=== PATIENT | female | born 1975 | race Caucasian/White ===

== ENCOUNTER 2024-04-14 00:13 | Emergency (ER) | payer OTHER, SELFPAY ==
[2024-04-14 00:38] VITALS: BP 131/99
[2024-04-14 00:39] VITALS: BP 131/99
[2024-04-14 00:41] VITALS: BMI 23.2
--- NOTE | 2024-04-14 00:45 | ED.GENMED ---
History of Present Illness
General
Chief Complaint: Abdominal Pain
Source: patient
Exam Limitations: none
Time Seen by Provider: 04/14/24 00:34
Nursing documentation reviewed up to this point in time: agreed with
History of Present Illness
History of Present Illness:
Pleasant 49-year-old female presents to the emergency department with a 'bump' in her upper abdomen since Sunday. She states that she has had mild diffuse abdominal pain. Tonight she states that she had some purulent discharge coming from her
umbilicus. She came into the emergency department for evaluation. Denies fever, chills, nausea or vomiting. Denies previous abdominal surgeries.
Past History
Past History
ED Past Medical History: Psychiatric (PTSD) and Other (Psychogenic polydipsia with hyponatremia)
ED Past Surgical History: Other (Rhinoplasty)
Social History
Tobacco: Smoker
Alcohol: None
Living: with family
Family History
Family History: Other (Breast cancer and colon cancer)
Review of Systems
Review of Systems
Allergies reviewed?: Yes
All Other Systems: ROS reviewed and negative except as documented in HPI and ROS
Constitutional: Reports no symptoms
EENT: Reports no symptoms
Respiratory: Reports no symptoms
Cardiac: Reports no symptoms
ABD/GI: Reports abdominal pain
: Reports no symptoms
Musculoskeletal: Reports no symptoms
Skin: Reports no symptoms
Neurological: Reports no symptoms
Endocrine: Reports no symptoms
Hematologic/Lymphatic: Reports no symptoms
Psychiatric: Reports no symptoms
Phy Exam
General Physical Exam
General Presentation: well appearing and no apparent distress
General Skin: warm and dry
General Habitus: normal
General Mental: alert
General Hydration: appears well hydrated
ENT Exam
ENT Exam: EOMI, pharynx normal, neck supple and normocephalic
Eye Exam
Eye Exam: PERRL, cornea clear and conjunctiva normal
Cardiovascular Exam
Cardiovascular Exam: regular rate/rhythm, no edema, no murmur and normal peripheral pulses
Pulmonary Exam
Pulmonary Exam: lungs clear, no respiratory distress, no rales, no crackles, no rhonchi, no stridor, no wheezing and no cough
Gastrointestinal Exam
Gastrointestinal Exam: normal bowel sounds, non tender, soft, no organomegaly, no pulsatile mass, non distended and other (Small protuberance above the abdomen. There is purulent discharge coming from the umbilical cavity. This was cultured.)
Abdominal Scars: other (This)
Auscultation of Abdomen: normal
Neurological Exam
Neurological Exam: alert, oriented x3, no motor deficits and speech normal
Musculoskeletal Exam
Musculoskeletal Exam: full ROM and no edema
Skin Exam
Skin Exam: normal color, warm/dry, no rash and no petechia
Psychiatric Exam
Psychiatric Exam: normal mood/affect
Course
Orders/Labs/Results
Orders:
Orders
04/14/24 00:41
CT Abd/pelvis W Iv Cont Urgent
Comment:
Reason For Exam: supra umbilcal lump with discharge
CR Chest - 2 Views Urgent
Comment:
Reason For Exam: right chest wall pain
04/14/24 00:45
Electrocardiogram (*1) Urgent
Reason for Study: Abdominal Pain
EKG- Treatment ONCE
04/14/24 00:50
Complete Blood Count/With Diff Urgent
Comprehensive Metabolic Panel Urgent
HCG, Serum Qualitative Screen Urgent
Lactic Acid Q4H
Comment: CANCEL 2nd LACTIC ACID IF 1st LACTIC ACID IS LESS THAN 2
Wound Culture [Wound/Abscess/Other Culture] Urgent
BRIGIDA Source: Abdomen
Specimen Description:
Date Specimen was Collected: 04/14/24
Time Specimen was Collected: 00:43
04/14/24 01:01
Add On- LAB Urgent
Tests Added?: hcg qual
Abnormal Lab Results
04/14/24
00:50
RBC 4.02 L 10^6/uL
(4.20-5.40)
MCH 32.6 H pg
(27.0-31.0)
04/14/24 00:50
04/14/24 00:50
Vital Signs
Initial and Last Documented VS:
Initial Vital Signs
Temp Pulse Resp BP Pulse Ox
97.9 F 67 20 131/99 99
04/14/24 00:38 04/14/24 00:38 04/14/24 00:38 04/14/24 00:38 04/14/24 00:38
Last Documented Vital Signs
Temp Pulse Resp BP Pulse Ox
97.9 F 72 14 120/74 99
04/14/24 00:38 04/14/24 03:23 04/14/24 03:23 04/14/24 01:00 04/14/24 03:23
*Critical Care Note
Total Time (30-74mins, 75-104mins- exclusive of procedures): Not Applicable
Update Note
Update Note:
CT ABDOMEN PELVIS WITH CONTRAST
COMPARISON: 04/25/2017
IMPRESSION:
Increased skin thickening at the umbilicus that may indicate cellulitis. No drainable fluid collection.
Distended urinary bladder. Prominence of the bilateral ureters likely due to vesicoureteral reflux.
Contracted gallbladder. No CT signs of pancreatitis.
No evidence of diverticulitis or colitis. Moderate stool in the colon. Appendix not visualized. No bowel obstruction. No free air.
No concerning bone finding.
Case results were faxed/electronically transmitted at 2860 EST. If there are any questions please feel free to contact me directly at [phone], ext [phone]. If you cannot reach me at this number, do not leave a voicemail. Please call [phone]
ext [phone] and ask for the next available radiologist.
ED Attending Note
-
Portions of this chart may have been created with voice recognition software.� Occasional wrong word or��sound alike� substitutions may have occurred due to the inherent limitations of voice recognition software.
Discharge Plan
Departure
Patient Disposition: Home (Routine Discharge)
Date of Disposition: 04/14/24
Time of Disposition: 03:18
Patient with high blood pressure during this ER visit?: Yes
Discharge Problem:
Cellulitis
Instructions: Cellulitis (skin infection) in adults - Discharge instructions, BLOOD PRESSURE
Prescriptions:
New
cephalexin 500 mg capsule
500 mg PO BID 10 Days Qty: 20 0RF
No Action
lorazepam 1 MG tablet
1 mg PO Q8HPRN PRN (Reason: anxiety) Qty: 15 0RF
Referrals:
Josef Marcelo, [Family Provider] -
Activity Restrictions/Additional Instructions:
It was a pleasure meeting you and taking part in your care. We hope for your continued healing and wellness.
Please read discharge instructions in their entirety. However, they are for general education and may not describe your exact diagnosis at discharge. Information on your ER visit and medical conditions were discussed with you along with appropriate
follow up information...
If indicated, please take your medications as instructed and indicated on discharge paperwork.
Please schedule a follow up appointment as directed. Call to schedule an appointment
Please return to the emergency department with ANY change in, persisting, or worsening of symptoms. If any of your symptoms do not improve, or persist, or become more severe within 6-12 hours, please return to the emergency department for further
care.
Please return to the emergency department if you develop a headache, neck pain/stiffness, fever greater than 100.4F, chest pain, shortness of breath, persistent nausea, vomiting, slurred speech, difficulty walking, numbness/tingling, weakness, signs
of infection or any other symptoms that are worrisome to you.
If you have any questions or concerns please do not hesitate to call the Hospital at or E-mail me directly at [email or web address]
Interventions
Interventions:
*Risk Screen - Suicide Last Done: 04/14/24 00:42
*General Assessment Last Done: 04/14/24 00:42
*Neglect/Abuse Screening Last Done: 04/14/24 00:42
ED- Fall Risk Assessment Last Done: 04/14/24 01:57
*ED COVID-19 Vaccine History Last Done: 04/14/24 00:42
*Nursing Disposition Last Done: 04/14/24 03:23
TN-Xcskva-Ucckgptgha Assessment Last Done: 04/14/24 01:57
Discharge Date and Time
Discharge Date/Time: 04/14/24 03:24
Print Language: URDU
[2024-04-14 01:00] VITALS: BP 120/74
[2024-04-14 01:04] LABS: % Basophils 0.6 % (0-2); % Eosinophils 2.1 % (0-6); % Immature Granulocytes 0.1 % (0-0.5); % Lymphocytes 35.8 % (20.5-51.1); % Monocytes 7.8 % (1.7-9.3); % Neutrophils 53.6 % (42.2-75.2); Absolute Eosinophils 0.2 10^3/uL (0-0.7); Absolute Lymphocytes 2.6 10^3/uL (1.2-3.4); Absolute Monocytes 0.6 10^3/uL (0.1-0.6); Absolute Neutrophils 3.8 10^3/uL (1.4-6.5); Hemoglobin 13.1 g/dL (12.0-16.0); Mean Corp Hgb Conc. 34.5 g/dL (33.0-37.0); Mean Corpuscular Hgb 32.6 pg (27.0-31.0); Mean Corpuscular Volume 94.5 fL (81.0-99.0); Mean Platelet Volume 9.5 fL (7.4-10.4); Nucleated Red Blood Cells % 0 %; Platelet Count 241 10^3/uL (130-400); Red Blood Cell Count 4.02 10^6/uL (4.20-5.40); White Blood Cell Count 7.2 10^3/uL (4.8-10.8)
[2024-04-14 01:11] LABS: ALT (SGPT) 14 U/L (0-35); AST (SGOT) 20 U/L (14-36); Albumin 4.7 g/dl (3.5-5.0); Alkaline Phosphatase 77 U/L (38-126); Blood Urea Nitrogen 13 mg/dl (7-17); Calcium 10.1 mg/dl (8.4-10.2); Carbon Dioxide 25 mmol/L (22-30); Chloride 101 mmol/L (98-107); Estimated Creatinine Clearance 91 ml/min; Glucose 94 mg/dl (70-99); Potassium 3.6 mmol/L (3.5-5.1); Sodium 137 mmol/L (135-145); Total Bilirubin 0.5 mg/dl (0.2-1.3); Total Protein 7.1 g/dl (6.3-8.2); eGFR > 60.00
[2024-04-14 02:11] LABS: HCG, Serum Qualitative Screen Negative
== END 2024-04-14 03:24 | disposition home or self-care (01) ==
LOC: EMR 00:13
PROVIDERS: EMERGENCY PHYSICIAN Student in an Organized Health Care Education/Training Program; FAMILY PHYSICIAN Family Medicine
DX: L03.311 Cellulitis of abdominal wall (principal); F17.200 Nicotine dependence, unspecified, uncomplicated
CPT/HCPCS: 99285; 71046; 74177; 80053; 83605; 84703; 85025; 87070; 87077; 87147; 87186; 87205; 93005; Q9967

== ENCOUNTER 2024-09-30 06:39 | Emergency (ER) | payer OTHER, SELFPAY ==
[2024-09-30 06:49] VITALS: BP 133/85
--- NOTE | 2024-09-30 08:30 | ED.GENMED ---
History of Present Illness
General
Chief Complaint: Skin Problem
Source: patient
Exam Limitations: none
Time Seen by Provider: 09/30/24 07:28
Nursing documentation reviewed up to this point in time: agreed with
History of Present Illness
History of Present Illness:
Patient is a 49-year-old female who presents to the ER complaining of redness and pain to right buttocks. She reports she has had a small area to the buttocks for about a year and thought it may have been a cyst. She has never had it examined
however over the past several days patient reports it has become increasingly painful and enlarged. He has discomfort when she sits on the area. She denies any fever or chills. She did feel little nauseous from it.
Past History
Past History
ED Past Medical History: Psychiatric (PTSD) and Other (Psychogenic polydipsia with hyponatremia)
ED Past Surgical History: Other (Rhinoplasty)
Social History
Tobacco: Smoker
Alcohol: None
Living: with family
Family History
Family History: Other (Breast cancer and colon cancer)
Phy Exam
General Physical Exam
General Presentation: no apparent distress
General age: appears stated age
General Skin: warm and dry
General Habitus: normal
General Mental: alert
General Hydration: appears well hydrated
Neurological Exam
Neurological Exam: alert and oriented x3
Musculoskeletal Exam
Musculoskeletal Exam: full ROM
Skin Exam
Skin Exam: normal color, warm/dry and other (+ area of erythema/induration to right mid buttocks approx 5x5 cm no fluctuance not near analia rectal region )
Psychiatric Exam
Psychiatric Exam: normal mood/affect
Course
Orders/Labs/Results
Orders:
Orders
09/30/24 08:29
Doxycycline [Vibramycin] 100 mg PO NOW STA
Ibuprofen [Motrin] 600 mg PO NOW STA
Vital Signs
Initial and Last Documented VS:
Initial Vital Signs
Temp Pulse Resp BP Pulse Ox
97.4 F 72 14 133/85 100
09/30/24 06:49 09/30/24 06:49 09/30/24 06:49 09/30/24 06:49 09/30/24 06:49
Last Documented Vital Signs
Temp Pulse Resp BP Pulse Ox
97.4 F 72 14 133/85 100
09/30/24 06:49 09/30/24 06:49 09/30/24 06:49 09/30/24 06:49 09/30/24 08:33
Procedures
Incision/Drainage/Joint Aspiration
Right Buttock:
Anethesia: 1% Lidocaine with Epi and other (After injection of lidocaine patient felt that she could not tolerate the procedure and no further intervention was done)
MDM/Problems Addressed
Differential Diagnosis Includes:
Not limited to abscess, cellulitis
MDM/Problems Addressed:
Patient is a 49-year female with an abscess to her right buttocks. Area is very firm no fluctuance. After joint decision-making patient wanted to try to attempt to drain however after injection of lidocaine patient felt that she could not continue
and would like to hold off. This is reasonable as this area is very indurated. Discussed warm compresses to the area multiple times a day hot soaks and antibiotics to close outpatient follow-up with family doctor. I did reviewed with patient that
this may either resolve on its own with warm compresses antibiotics will need to be drained she is aware of this. She was given strict return precautions
*Pulse Oximetry
SaO2: 100
Oxygen Mode of Delivery: Room air
Patient hypoxic: no
*Critical Care Note
Total Time (30-74mins, 75-104mins- exclusive of procedures): Not Applicable
ED Attending Note
-
Portions of this chart may have been created with voice recognition software.� Occasional wrong word or��sound alike� substitutions may have occurred due to the inherent limitations of voice recognition software.
Discharge Plan
Departure
Patient Disposition: Home (Routine Discharge)
Date of Disposition: 09/30/24
Time of Disposition: 08:32
Patient with high blood pressure during this ER visit?: Yes
Condition: Fair
Covid-19: Not Applicable
Discharge Problem:
Abscess of skin
Instructions: BLOOD PRESSURE, Skin Abscess
Prescriptions:
New
doxycycline hyclate 100 mg capsule
100 mg PO BID Qty: 20 0RF
No Action
lorazepam 1 MG tablet
1 mg PO Q8HPRN PRN (Reason: anxiety) Qty: 15 0RF
cephalexin 500 mg capsule
500 mg PO BID 10 Days Qty: 20 0RF
sulfamethoxazole-trimethoprim [Bactrim DS] 800-160 mg tablet
1 tab PO Q12H Qty: 14 0RF
Referrals:
Josef Marcelo, [Family Provider, Family Practice]
Stand Alone Forms: Return to Work
Activity Restrictions/Additional Instructions:
As discussed warm compresses to buttocks several times a day. Antibiotic as directed twice daily for the next 10 days. You were given the first dose here in the ER and antibiotic was sent to your prescription. Follow-up with your family doctor in
the next 2 days for reevaluation of symptoms. It is possible that this may need to be drained. Return however if any worsening of symptoms of increased pain redness fever chills or any further concerns.
Interventions
Interventions:
*Risk Screen - Suicide Last Done: 09/30/24 06:49
Discharge Date and Time
Print Language: PALAUAN
[2024-09-30] MEDS: MOTRIN 600 MG PO (08:41)
[2024-09-30] MEDS: VIBRAMYCIN 100 MG PO (08:41)
[2024-09-30 08:53] VITALS: BP 143/79
== END 2024-09-30 08:53 | disposition home or self-care (01) ==
LOC: EMR 06:39
PROVIDERS: EMERGENCY PHYSICIAN Emergency Medicine; FAMILY PHYSICIAN Family Medicine
DX: L02.31 Cutaneous abscess of buttock (principal); F17.200 Nicotine dependence, unspecified, uncomplicated
CPT/HCPCS: 10060; 99283

== ENCOUNTER 2024-10-04 12:39 | Emergency (ER) | payer OTHER, SELFPAY ==
[2024-10-04 12:40] VITALS: BP 134/97
--- NOTE | 2024-10-04 14:30 | ED.GENMED ---
History of Present Illness
General
Chief Complaint: Skin Problem
Source: patient
Exam Limitations: none
Time Seen by Provider: 10/04/24 13:08
Nursing documentation reviewed up to this point in time: agreed with
History of Present Illness
History of Present Illness:
Patient is a 49-year-old female presents to the ER for evaluation. Patient was seen in the ER 4 days ago for abscess at that time drainage was attempted however no pus and return. Patient has been on antibiotics however complains of increasing
swelling. She was seen by her family doctor in addition to the doxycycline prescribed here in the ER she started on Keflex by her family doctor and given a shot of Rocephin as well. She denies any fevers but does complain increasing redness and
pain and swelling to the area.
Past History
Past History
ED Past Medical History: Psychiatric (PTSD) and Other (Psychogenic polydipsia with hyponatremia)
ED Past Surgical History: Other (Rhinoplasty)
Social History
Tobacco: Smoker
Alcohol: None
Living: with family
Family History
Family History: Other (Breast cancer and colon cancer)
Phy Exam
General Physical Exam
General Presentation: no apparent distress
General age: appears stated age
General Skin: warm and dry
General Habitus: normal
General Mental: alert
General Hydration: appears well hydrated
Neurological Exam
Neurological Exam: alert and oriented x3
Musculoskeletal Exam
Musculoskeletal Exam: full ROM
Skin Exam
Skin Exam: normal color, warm/dry and other (right buttocks with obvious abscess with center fluctuance )
Psychiatric Exam
Psychiatric Exam: normal mood/affect
Course
Orders/Labs/Results
Orders:
Orders
10/04/24 14:30
Wound Culture [Wound/Abscess/Other Culture] Urgent
BRIGIDA Source: Abscess
Specimen Description:
Date Specimen was Collected: 10/04/24
Time Specimen was Collected: 14:32
Comment: right buttocks
10/04/24 14:32
Vital Signs- Treatment ONCE
Frequency: Once
Vital Signs
Initial and Last Documented VS:
Initial Vital Signs
Temp Pulse Resp BP Pulse Ox
99.5 F 127 18 134/97 99
10/04/24 12:40 10/04/24 12:40 10/04/24 12:40 10/04/24 12:40 10/04/24 12:40
Last Documented Vital Signs
Temp Pulse Resp BP Pulse Ox
99.5 F 127 18 134/97 99
10/04/24 12:40 10/04/24 12:40 10/04/24 12:40 10/04/24 12:40 10/04/24 14:30
Procedures
Incision/Drainage/Joint Aspiration
Right Buttock:
Anethesia: 1% Lidocaine with Epi
Preparation: cleaned with Betadine
Type of procedure: incise and drain
Nature of site: abscess
Description of abscess: greater than 3cm
Loculations broken up: Yes
How much fluid was obtained?: large amount
Fluid description: purulent
Treatment: packed with gauze
MDM/Problems Addressed
Differential Diagnosis Includes:
Not limited to abscess cellulitis
MDM/Problems Addressed:
Patient was seen here several days ago for early abscess which was very indurated started on antibiotics however abscess has increased with redness and now fluctuant. Patient was previously discharged on doxycycline from the ER added Keflex by
family doctor given shot of Rocephin. No fever or chills. She presents awake alert she is stable appearing but anxious over the incision and drainage procedure.
Right buttocks abscess was incised and drained with significant mount of purulent drainage and return. She tolerated the procedure very well with mom at bedside.
She is to continue on antibiotics and see her family doctor Sunday for packing removal and recheck. she is to return if worsening of symptoms
*Pulse Oximetry
SaO2: 99
Oxygen Mode of Delivery: Room air
Patient hypoxic: no
*Critical Care Note
Total Time (30-74mins, 75-104mins- exclusive of procedures): Not Applicable
ED Attending Note
-
Portions of this chart may have been created with voice recognition software.� Occasional wrong word or��sound alike� substitutions may have occurred due to the inherent limitations of voice recognition software.
Discharge Plan
Departure
Patient Disposition: Home (Routine Discharge)
Date of Disposition: 10/04/24
Time of Disposition: 14:33
Patient with high blood pressure during this ER visit?: Yes
Condition: Fair
Covid-19: Not Applicable
Discharge Problem:
Abscess of buttock, right
Instructions: BLOOD PRESSURE, Skin Abscess
Prescriptions:
No Action
lorazepam 1 MG tablet
1 mg PO Q8HPRN PRN (Reason: anxiety) Qty: 15 0RF
cephalexin 500 mg capsule
500 mg PO BID 10 Days Qty: 20 0RF
sulfamethoxazole-trimethoprim [Bactrim DS] 800-160 mg tablet
1 tab PO Q12H Qty: 14 0RF
doxycycline hyclate 100 mg capsule
100 mg PO BID Qty: 20 0RF
Referrals:
Josef Marcelo, [Family Provider, Family Practice]
Activity Restrictions/Additional Instructions:
As discussed continue antibiotics as previously prescribed. Keep packing in place. You may apply warm compresses to the right buttock while keeping the packing in place several times a day. Please see your family doctor on Sunday for wound check
and packing removal. After that you may do warm hot soaks as previously done. Return if any worsening of symptoms or increased pain swelling redness drainage fever chills.
Interventions
Interventions:
*Risk Screen - Suicide Last Done: 10/04/24 12:40
*General Assessment Last Done: 10/04/24 12:40
*Neglect/Abuse Screening Last Done: 10/04/24 12:40
ED-Skin Assessment Last Done: 10/04/24 13:04
Discharge Date and Time
Print Language: PERSIAN
== END 2024-10-04 14:15 | disposition home or self-care (01) ==
LOC: EMR 12:39
PROVIDERS: EMERGENCY PHYSICIAN Emergency Medicine; FAMILY PHYSICIAN Family Medicine
DX: L02.31 Cutaneous abscess of buttock (principal); F17.200 Nicotine dependence, unspecified, uncomplicated; Z80.0 Family history of malignant neoplasm of digestive organs; Z80.3 Family history of malignant neoplasm of breast; F43.10 Post-traumatic stress disorder, unspecified
CPT/HCPCS: 99282; 10060; 87070; 87205

== ENCOUNTER 2024-10-10 20:26 | Emergency (ER) | payer OTHER, SELFPAY ==
[2024-10-10 20:29] VITALS: BP 151/91
[2024-10-10 20:58] LABS: Hematocrit 35.2 % (37.0-47.0); Hemoglobin 12.2 g/dL (12.0-16.0); Mean Corp Hgb Conc. 34.7 g/dL (33.0-37.0); Mean Corpuscular Volume 93.6 fL (81.0-99.0); Nucleated Red Blood Cells % 0 %; Platelet Count 376 10^3/uL (130-400); Red Cell Dist. Width 12.6 % (11.5-14.5)
[2024-10-10 21:09] LABS: ALT (SGPT) 17 U/L (0-35); AST (SGOT) 21 U/L (14-36); Albumin 4.4 g/dl (3.5-5.0); Alkaline Phosphatase 47 U/L (38-126); Blood Urea Nitrogen 4 mg/dl (7-17); Calcium 10.0 mg/dl (8.4-10.2); Carbon Dioxide 27 mmol/L (22-30); Chloride 90 mmol/L (98-107); Glucose 130 mg/dl (70-99); Potassium 3.5 mmol/L (3.5-5.1); Sodium 124 mmol/L (135-145); Total Protein 6.7 g/dl (6.3-8.2); eGFR > 60.00
[2024-10-10 22:13] VITALS: BP 137/88
[2024-10-10 22:17] VITALS: BMI 23.5
[2024-10-10 22:22] VITALS: BP 137/88
--- NOTE | 2024-10-10 23:22 | ED.GENMED ---
History of Present Illness
General
Chief Complaint: Change in Mental Status
Time Seen by Provider: 10/10/24 22:11
History of Present Illness
History of Present Illness:
49-year-old female presents to the emergency department for evaluation of lightheadedness, mental fogginess, and 'tightness' of the arms. States these are the symptoms that are similar to her prior bout of hyponatremia however much more mild. She
was admitted to this hospital in 2017 due to hyponatremia felt to be due to psychogenic polydipsia, at that time was drinking 5 to 6 L of water per day. Currently she drinks minimal water but consumes approximately 72 ounces to 108 ounces of diet
cola per day. She denies any vision changes, nausea, vomiting, or profound lethargy. She does not take any diuretics or SSRIs.
Past History
Past History
ED Past Medical History: Psychiatric (PTSD) and Other (Psychogenic polydipsia with hyponatremia)
ED Past Surgical History: Other (Rhinoplasty)
Social History
Tobacco: Smoker
Alcohol: None
Living: with family
Family History
Family History: Other (Breast cancer and colon cancer)
Review of Systems
Review of Systems
Allergies reviewed?: Yes
All Other Systems: ROS reviewed and negative except as documented in HPI and ROS
Phy Exam
Physical Exam
Physical Exam:
GEN: Well appearing, NAD, WDWN
HEENT: Oral mucosa moist, no scleral icterus, no nasal congestion
Cardiac: Regular rate
Lung: No respiratory distress, no tachypnea
MSK: No gross deformity or injuries
Skin: Good color, no pallor or jaundice, no rashes
Neuro: AO x3; CN II-XII grossly intact. BUE strength 5/5 in all concepcion, sensation intact and symmetric. BLE strength 5/5 in all concepcion, sensation intact and symmetric
Psych: Calm, cooperative
Course
Orders/Labs/Results
Orders:
Orders
10/10/24 20:42
Complete Blood Count/With Diff Urgent
Comprehensive Metabolic Panel Urgent
Serum Osmolality Urgent
Comment: ADD ON
10/10/24 22:26
Add On- LAB Urgent
Tests Added?: serum osmolality
10/10/24 22:57
Osmolality, Random Urine Urgent
Date Specimen was Collected: 10/10/24
Time Specimen was Collected: 22:57
Urine Sodium Urgent
Date Specimen was Collected: 10/10/24
Time Specimen was Collected: 22:57
Abnormal Lab Results
10/10/24 10/10/24
20:42 22:57
WBC 12.8 H 10^3/uL
(4.8-10.8)
RBC 3.76 L 10^6/uL
(4.20-5.40)
Hct 35.2 L %
(37.0-47.0)
MCH 32.4 H pg
(27.0-31.0)
Abs Immat Gran (auto) 0.1 H 10^3/uL
(0-0.05)
Absolute Neuts (auto) 9.9 H 10^3/uL
(1.4-6.5)
Absolute Monos (auto) 1.0 H 10^3/uL
(0.1-0.6)
Immature Gran % 0.6 H %
(0-0.5)
Neutrophils % 77.4 H %
(42.2-75.2)
Lymphocytes % 13.7 L %
(20.5-51.1)
Sodium 124 L mmol/L
(135-145)
Chloride 90 L mmol/L
(98-107)
BUN 4 L mg/dl
(7-17)
Glucose 130 H mg/dl
(70-99)
Serum Osmolality 263 L mOsm/kg
(275-300)
Urine Osmolality 153 L mOsm/kg
(300-900)
10/10/24 20:42
10/10/24 20:42
Vital Signs
Initial and Last Documented VS:
Initial Vital Signs
Temp Pulse Resp Pulse Ox
98.4 F 85 18 99
10/10/24 20:28 10/10/24 20:28 10/10/24 20:28 10/10/24 20:28
Last Documented Vital Signs
Temp Pulse Resp BP Pulse Ox
98.4 F 85 18 137/88 100
10/10/24 20:28 10/10/24 22:22 10/10/24 22:22 10/10/24 22:22 10/10/24 22:22
MDM/Problems Addressed
MDM/Problems Addressed:
Patient is hyponatremic most likely due to psychogenic polydipsia again, diet: Is hypotonic coupled with caffeine intake likely creating a diuretic like effect. At this time she is minimally symptomatic. Serum and urine osmolality are compatible
with excess low solute intake. I recommended she be admitted for close monitoring of sodium however she declines and would prefer to be discharged home. Given that she is minimally symptomatic and will be fluid restrictions is not reasonable. I
have recommended strict 48 ounce fluid restriction (preferably alternative liquids to diet cola) with repeat BMP in 3 days. Will then recommend further fluid restriction based on that result, if still hyponatremic will maintain 48 ounces versus if
normal sodium will liberalize the fluid restriction. She will follow-up with her primary care physician within the next week as well. Strict ED return parameters discussed
*Pulse Oximetry
SaO2: 100
Oxygen Mode of Delivery: Room air
Patient hypoxic: no
*Critical Care Note
Total Time (30-74mins, 75-104mins- exclusive of procedures): Not Applicable
ED Attending Note
-
Portions of this chart may have been created with voice recognition software.� Occasional wrong word or��sound alike� substitutions may have occurred due to the inherent limitations of voice recognition software.
Discharge Plan
Departure
Patient Disposition: Home (Routine Discharge)
Date of Disposition: 10/10/24
Time of Disposition: 23:26
Patient with high blood pressure during this ER visit?: No
Discharge Problem:
Psychogenic polydipsia, Hyponatremia
Instructions: Hyponatremia
Prescriptions:
No Action
lorazepam 1 MG tablet
1 mg PO Q8HPRN PRN (Reason: anxiety) Qty: 15 0RF
cephalexin 500 mg capsule
500 mg PO BID 10 Days Qty: 20 0RF
sulfamethoxazole-trimethoprim [Bactrim DS] 800-160 mg tablet
1 tab PO Q12H Qty: 14 0RF
doxycycline hyclate 100 mg capsule
100 mg PO BID Qty: 20 0RF
Referrals:
Josef Marcelo, [Family Provider, Family Practice]
Activity Restrictions/Additional Instructions:
Strict fluid restriction for the next 7 days, no more than 48 oz (1400mL) per 24 hours
Have your sodium rechecked on Sunday
If sodium is improved, but remains below 130, continue the 48 oz fluid restriction for another 7 days
If sodium is between 131 and 134, you may increase to 54 oz fluid per 24 hours for the next 7 days
If sodium is above 135, you may consume a normal amount of fluid per day
If sodium is below 125, return to the ER
HOWEVER:
Please minimize or completely eliminate diet soda usage
Follow up with your primary care physician early next week
Interventions
Interventions:
*Risk Screen - Suicide Last Done: 10/10/24 20:29
ED- Neurological Assessment Last Done: 10/10/24 22:18
ED Swallowing Screen Last Done: 10/10/24 22:18
Discharge Date and Time
Print Language: HUNGARIAN
== END 2024-10-10 23:42 | disposition home or self-care (01) ==
LOC: EMR 20:26
PROVIDERS: Physician Assistant; EMERGENCY PHYSICIAN Emergency Medicine; FAMILY PHYSICIAN Family Medicine
DX: R63.1 Polydipsia (principal); E87.1 Hypo-osmolality and hyponatremia; F43.10 Post-traumatic stress disorder, unspecified; F17.200 Nicotine dependence, unspecified, uncomplicated
CPT/HCPCS: 99283; 80053; 83930; 83935; 84300; 85025